=== PATIENT | female | born 1995 | race Caucasian/White ===

== ENCOUNTER → 2019-04-15 16:22 | Outpatient (BNVA) | payer SELFPAY | PROVIDERS: PCP Registered Nurse; Visit Provider Registered Nurse | DX: R59.1 Generalized enlarged lymph nodes (principal) | CPT/HCPCS: 85025; 86308 ==

== ENCOUNTER → 2019-05-16 16:17 | Outpatient (BNVA) | payer BC, SELFPAY | PROVIDERS: PCP Family Medicine; Visit Provider Family Medicine | DX: J11.1 Influenza due to unidentified influenza virus with other respiratory manifestations (principal); J02.9 Acute pharyngitis, unspecified | CPT/HCPCS: 87081; 87804; 87880 ==

== ENCOUNTER → 2019-07-21 10:04 | Outpatient (BNVA) | payer BC, SELFPAY | PROVIDERS: PCP Family Medicine; Visit Provider Internal Medicine Rheumatology | DX: R53.83 Other fatigue (principal); R76.8 Other specified abnormal immunological findings in serum; Z79.899 Other long term (current) drug therapy; Z11.59 Encounter for screening for other viral diseases; Z72.89 Other problems related to lifestyle | CPT/HCPCS: 36415; 80076; 82306; 82565; 82728; 85025; 85651; 86140; 86431; 86480; 86704; 86803; 87340 ==